=== PATIENT | male | born 1970 | race Caucasian/White ===

== ENCOUNTER 2020-06-02 20:22 | Emergency (ER) | payer OTHER, SELFPAY ==
--- NOTE | ~2020-06-02 | XR_ITS ---
EXAMINATION: XR hand LT 2V DATE: 06/02/2020 21:23 INDICATION: Left hand laceration. TECHNIQUE: 2 views of left hand were obtained. COMPARISON: None. FINDINGS: Bone alignment is normal. No fracture. There is mild osteoarthritis of second metacarpophal angeal joint and second distal interphalangeal joint. There are lacerations of the distal third and f ourth digits. IMPRESSION: 1. No fracture or radiopaque foreign body. Reviewed, dictated and finalized at location A.
[2020-06-02 20:38] VITALS: BP 138/96; PULSE 64; RESP 18; TEMP 36.7; O2SAT 99
--- NOTE | 2020-06-02 21:31 | ED.WOUNDLAC ---
HPI - Wound/Laceration General Chief Complaint: Wound/Laceration <Saud Simpson MD - Last Filed: 06/02/20 22:10> Stated Complaint: Finger Laceration <Saud Simpson MD - Last Filed: 06/02/20 22:10> Time Seen by Provider: 06/02/20 21:21 <Saud Simpson MD - Last Filed: 06/02/20 22:10> History of Present Illness HPI narrative: Patient is a 41-year-old male who presents ER with laceration to the left third digit. Patient was using a table saw when his finger got caught in it. He has numbness to the distal tip of the finger. No functional deficit. Bleeding controlled. Small lack to the left fourth digit palmar aspect that does not need repair. Unknown last tetanus. <Saud Simpson MD - Last Filed: 06/02/20 22:10> Related Data Allergies/Adverse Reactions: Allergies Allergy/AdvReac Type Severity Reaction Status Date / Time No Known Allergies Allergy Unverified 06/02/20 20:37 <Saud Simpson MD - Last Filed: 06/02/20 22:10> Review of Systems Musculoskeletal: Musculoskeletal: Denies arthralgias, Denies joint swelling and Denies muscle cramps <Saud Simpson MD - Last Filed: 06/02/20 22:10> Integumentary/Breasts: Comments: laceration left 3rd/4th <Saud Simpson MD - Last Filed: 06/02/20 22:10> Neurologic: Denies focal weakness and Reports numbness <Saud Simpson MD - Last Filed: 06/02/20 22:10> PMFSH Past Medical History Medical History: Medical History (Updated 06/02/20 @ 22:09 by Saud Simpson MD) HTN (hypertension), benign <Saud Simpson MD - Last Filed: 06/02/20 22:10> Surgical History Surgical History: Surgical History (Updated 06/02/20 @ 21:33 by Saud Simpson MD) No pertinent past surgical history <Saud Simpson MD - Last Filed: 06/02/20 22:10> Social History Social History: Social History Gender identity (if verbalized by the patient): Male <Saud Simpson MD - Last Filed: 06/02/20 22:10> Exam Narrative: Exam Narrative: GENERAL: Well-appearing, well-nourished, and in no acute distress. HEAD: Normocephalic, atraumatic. EXTREMITIES: Normal range of motion. No edema. SKIN: Warm, dry, no rash. 2 cm laceration to the palmar aspect of the third finger over the fat pad left side. No bone seen in bloodless field. NEURO: Sharp touch deficit distal tip of the left third finger. Alert and oriented x3. PSYCH: Normal mood and affect. <Saud Simpson MD - Last Filed: 06/02/20 22:10> Course Course Emergency Course: Laceration repair. By Donald WALTON Tetanus updated. Discharge home. <Saud Simpson MD - Last Filed: 06/02/20 22:10> Vital Signs Vital signs: Vital Signs Temperature 98.0 F 06/02/20 20:38 Pulse Rate 64 06/02/20 20:38 Respiratory Rate 18 06/02/20 20:38 Blood Pressure 138/96 H 06/02/20 20:38 Pulse Oximetry 99 06/02/20 20:38 Temperature 98.0 F 06/02/20 20:38 Pulse Rate 64 06/02/20 20:38 Respiratory Rate 18 06/02/20 20:38 Blood Pressure 138/96 H 06/02/20 20:38 Pulse Oximetry 99 06/02/20 20:38 <Saud Simpson MD - Last Filed: 06/02/20 22:10> Vital Signs Temperature 98.0 F 06/02/20 20:38 Pulse Rate 64 06/02/20 20:38 Respiratory Rate 18 06/02/20 20:38 Blood Pressure 138/96 H 06/02/20 20:38 Pulse Oximetry 99 06/02/20 20:38 Temperature 98.0 F 06/02/20 20:38 Pulse Rate 64 06/02/20 20:38 Respiratory Rate 18 06/02/20 20:38 Blood Pressure 138/96 H 06/02/20 20:38 Pulse Oximetry 99 06/02/20 20:38 <Hunter Bennett PA-C - Last Filed: 06/02/20 22:08> Procedures Laceration Laceration 1: Date: 06/02/20 <BASSEM Rosa Last Filed: 06/02/20 22:08> Time: 22:07 <BASSEM Rosa Last Filed: 06/02/20 22:08> Site: upper extremity <BASSEM Rosa Last Filed: 06/02/20 22:08> Side (If applicable): left <Hunter Ramirez
[2020-06-02 22:21] VITALS: BP 144/81; PULSE 81; RESP 19; TEMP 36.3; O2SAT 100
[2020-06-02] MEDS: TETANUS,DIPHTHERIA,AC PERTUSSIS ADULT (0.5 ML) BOOSTRIX IM (22:24)
== END 2020-06-02 22:24 | disposition home or self-care (01) ==
PROVIDERS: Emergency Provider Emergency Medicine; PCP Internal Medicine
DX: S61.213A Laceration without foreign body of left middle finger without damage to nail, initial encounter (principal); I10 Essential (primary) hypertension; Z23 Encounter for immunization; W31.2XXA Contact with powered woodworking and forming machines, initial encounter
CPT/HCPCS: 12001; 73120; 90471; 90715; 99283

== ENCOUNTER 2025-03-15 02:28 | Day surgery (SDC) | payer BC, SELFPAY ==
[2025-03-04 12:58] VITALS: BMI 35.0
--- OUTSIDE RECORDS SUMMARY | 2025-03-15 02:37 | XMS_ITS | Data Portability ---
Author Organization [facility], Main Office Address [address] [place] [address] Assessment Encounter Date Assessment Date Assessment LastModified by Organization Details LastModified Time 05/13/2023 05/13/2023 Continue current therapy blood work colonoscopy healthy lifestyle choices follow-up 6 months [email or web address] Not available 05/26/2023 13:13:50 Plan of Treatment Reminders Order Date Submit Date Provider Last Modified By Organization Details Last Modified Time Details Appointments None record ed. Lab None record ed. Referral None record ed. Procedures None record ed. Surgeries None record ed. Imaging None record ed. Medication Orders None record ed. Patient TargetsNo targets recorded. Patient InstructionsNo instructions recorded. Reason for Referral None Reported. Results Created Date Observation Date Name Description Value Unit Range Abnormal Flag Note LastModifiedBy Organization Detail LastModifiedTime Result Notes None recorded. Problems Name Problem SNOMED Code Status Onset Date Resolution Date Notes Provider Name and Address Organization Details Recorded Time Thumbnail injury 238025877 Completed Not Available [facility] 3 06:03:16 Pain of shoulder region 30912036 Completed Not Available [facility] 3 06:03:16 Primary erectile dysfunctio n 622736711 Active 2018 Not Available [facility] 3 06:03:16 Essential hypertensi on 32334034 Active Not Available [facility] 3 06:03:16 Osteoarthr itis 979263899 Active 2022 Alex Aguirre MD [address] [place] [address], [place], [address] , [facility] 3 13:13:41 Problem Notes None recorded. Procedures Surgical History Date Name Laterality Status Provider Name and Address Organization Details Recorded Time tonsilectomy/a denoids completed Not Available [facility] 01/16/2023 05:56:33 Knee arthroscopy/stephens rgery completed Not Available [facility] 01/16/2023 05:56:33 Carpal tunnel completed Not Available [facility] 01/16/2023 05:56:33 Elbow arthroscopy/stephens rgery completed Not Available [facility] 01/16/2023 05:56:33 Cataract Surgery completed Not Available [facility] 01/16/2023 05:56:33 Imaging Results None recorded. Procedure Notes None recorded. Medical Equipment None Reported. Allergies No known drug allergies Medications Name Sig Start Date Stop Date Status Note LastModified by Organization Details LastModified Time ofloxacin 0.3 % eye drops 11/14 completed Not Available Not Available Not Available tizanidine 4 mg tablet Take 1 tablet every day by oral route at bedtime. active Not Available Not Available No t Available hydrocodone 5 mg-acetamin ophen 325 mg tablet TAKE 1 TO 2 TABLETS BY MOUTH EVERY 4 TO 6 HOURS NEEDED FOR PAIN 12/02 completed Not Available Not Available Not Available prednisone 20 mg tablet Take 2 tablets every day by oral route as directed for 5 days. active Not Available Not Available No t Available ketorolac 0.5 % eye drops 11/14 completed Not Available Not Available Not Available prednisolon e acetate 1 % eye drops,suspe nsion 11/14 completed Not Available Not Available Not Available cephalexin 500 mg capsule TK 2 CS PO IMMEDIATE LY AND THEN TK 1 C PO Q 6 H TAT 01/04 completed Not Available Not Available Not Available lisinopril 10 mg tablet Take 1 tablet every day by oral route for 30 days. 11/28 completed Not Available Not Available Not Available diclofenac sodium 75 mg tablet,jax yed release 09/30 completed Not Available Not Available Not Available etodolac 400 mg tablet TAKE 1 TABLET BY MOUTH TWICE A DAY active Not Available Not Available No t Available loteprednol etabonate 0.5 % eye drops,suspe nsion INSTILL 1 DROP INTO RIGHT EYE THREE TIMES A DAY SHAKE WELL 11/14 completed Not Available Not Available Not Available methylpredn isolone 4 mg tablets in a dose pack Take 1 dose pk by oral route as directed. 07/22 completed Not Available Not Available Not Available naproxen 500 mg tablet Take 1 tablet twice a day by oral route. active Not Available Not Available No t Available bupropion HCl XL 150 mg 24 hr tablet, extended release TAKE ONE TABLET BY MOUTH DAILY. 03/20 completed Not Available Not Available Not Available tadalafil 20 mg tablet TAKE 1 TABLET BY MOUTH EVERY 72 HOURS DIRECTED active Not Available Not Available No t Available nebivolol 5 mg tablet TAKE 1 TABLET BY MOUTH EVERY DAY active Not Available Not Available No t Available omeprazole 20 mg tablet,jax yed release Take 1 tablet by oral route. active Not Available Not Available No t Available Zegerid OTC 2016 active Not Available Not Available Not Avai lable Vitals Date Recorded Body mass index (BMI) Body height Heart rate Body temperature Body weight Systolic blood pressure Diastolic blood pressure Provider Name and Address Organization Details Last Updated DateTime 1 34.6 kg/m2 177.8 cm 78 /min 98.3 [degF] 662012. 76 g 110 mm[Hg] 60 mm[Hg] Not Available [facility] 3 06:02:27 Date Recorded Body mass index (BMI) Body height Oxygen saturation Oxygen saturation in Arterial blood by Pulse oximetry Heart rate Respiratory rate Body temperature Body weight Systolic blood pressure Diastolic blood pressure Provider Name and Address Organization Details Last Updated DateTime 1 33.1 kg/m2 177.8 cm 98 % 98 % 76 /min 14 /min 97.6 [degF] 656307. 84 g 110 mm[Hg] 60 mm[Hg] Not Available [facility] 3 06:02:27 Date Recorded Body mass index (BMI) Body height Oxygen saturation Oxygen saturation in Arterial blood by Pulse oximetry Heart rate Body temperature Body weight Systolic blood pressure Diastolic blood pressure Provider Name and Address Organization Details Last Updated DateTime 2 37.6 kg/m2 177.8 cm 98 % 98 % 64 /min 97 [degF] 263363. 2 g 130 mm[Hg] 70 mm[Hg] Not Available [facility] 3 06:02:27 Date Recorded Body mass index (BMI) Body height Heart rate Body temperature Body weight Systolic blood pressure Diastolic blood pressure Provider Name and Address Organization Details Last Updated DateTime 2 38.3 kg/m2 177.8 cm 60 /min 97.7 [degF] 855836. 16 g 146 mm[Hg] 88 mm[Hg] Not Available [facility] 3 06:02:27 Date Recorded Body height Body mass index (BMI) Body weight Body temperature Heart rate Systolic blood pressure Diastolic blood pressure Provider Name and Address Organization Details Last Updated DateTime 3 177.8 cm 37.4 kg/m2 716098. 61 g 98 [degF] 60 /min 132 mm[Hg] 88 mm[Hg] CHRIS Mejía [facility] 11:52:32 Social History Question Answer Notes LastModified by Organization Details LastModified Time Tobacco Smoking Status Former Smoker quit age32 JOSE [employer] 05/13/2023 10:58:31 Do You Have An Advance Directive? No [id number] Information not available 01/16/2023 What Is Your Level Of Alcohol Consumption? Occasional [id number] Information not available 01/16/2023 What Is Your Level Of Caffeine Consumption? Moderate MIGRATION.[id number] [id number] Information not available 01/16/2023 How Much Tobacco Do You Chew? None MIGRATION.[id number] [id number] Information not available 01/16/2023 In The 14 Days Before Symptom Onset, Have You Had Close Contact With A Laboratory-confi rmed COVID-19 While That Case Was Ill? No [email or web address] Information not available 05/13/2023 In The 14 Days Before Symptom Onset, Have You Had Close Contact With A Person Who Is Under Investigation For COVID-19 While That Person Was Ill? No [email or web address] Information not available 05/13/2023 What Type Of Diet Are You Following? REGULAR MIGRATION.[id number] [id number] Information not available 01/16/2023 Which Illicit Or Recreational Drugs Have You Used? None [email or web address] Information not available 05/13/2023 Do You Or Have You Ever Used E-cigarettes Or Vape? Never Used Electronic Cigarettes [email or web address] Information not available 05/13/2023 What Is The Highest Grade Or Level Of School You Have Completed Or The Highest Degree You Have Received? 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 No [email or web address] Information not available 05/13/2023 What Is The Fluoride Status Of Your Home? Unknown Information not available 05/13/2023 When Did You Quit Smoking? 17+yearssincelastci manuel [email or web address] Information not available 05/13/2023 Do You Use Insect Repellent Routinely? No [email or web address] Information not available 05/13/2023 Where Do You Live? SingleLevelHouse Information not available 05/13/2023 Do You Have A Medical Power Of Director Of Hospitality? Yes [email or web address] Information not available 05/13/2023 What Was The Date Of Your Most Recent Tobacco Screening? 05/13/2023 [email or web address] Information not available 05/13/2023 Have You Ever Been Counseled For Unhealthy Alcohol Use? No [email or web address] Information not available 05/13/2023 Do You Have Any Pets? Yes [email or web address] Information not available 05/13/2023 What Is Your Relationship Status? [email or web address] [id number] Information not available 01/16/2023 Do You Use Your Seat Belt Or Car Seat Routinely? Yes [email or web address] Information not available 05/13/2023 Do You Have Smoke And Carbon Monoxide Detectors In Your Home? Yes [email or web address] Information not available 05/13/2023 Are You Passively Exposed To Smoke? No [email or web address] Information not available 05/13/2023 Do You Or Have You Ever Used Smokeless Tobacco? Never Used Smokeless Tobacco MIGRATION.[id number] [id number] Information not available 01/16/2023 Are There Any Smokers In Your House? No [email or web address] Information not available 05/13/2023 How Much Tobacco Do You Smoke? No MIGRATION.0301 [id number] Information not available 01/16/2023 What Types Of Sporting Activities Do You Participate In? None [email or web address] Information not available 05/13/2023 Do You Feel Stressed (tense, Restless, Nervous, Or Anxious, Or Unable To Sleep At Night)? [id number] [email or web address] Information not available 05/13/2023 Do You Use Any Illicit Or Recreational Drugs? No [email or web address] Information not available 05/13/2023 Do You Use Sunscreen Routinely? No [email or web address] Information not available 05/13/2023 Has Tobacco Cessation Counseling Been Provided? No [email or web address] Information not available 05/13/2023 Have You Recently Traveled Abroad? No [email or web address] Information not available 05/13/2023 Do You Have Any Dietary Restrictions? No Information not available 05/13/2023 Do You Or Have You Ever Used Any Other Forms Of Tobacco Or Nicotine? No Information not available 05/13/2023 Sex: Male Functional Status Question Answer Note LastModified by [employer] Details LastModified Time What is your exercise level? Occasional [id number] Information not available 01/16/2023 Mental Status None recorded. Family History Relationship Description Onset Age of this Age Resolved Age Notes LastModified by Organization Details LastModified Time Father Myocardial infarction 59 [id number] Not available 01/16/2023 05:56:40 Mother Hypoglycemia [email or web address] Not av ailable 05/13/2023 10:58:28 Mother Malignant tumor of thyroid gland [email or web address] Not available 04/19 10:58:28 Unspecified Relation Family history of malignant neoplasm [email or web address] Not available 04/19 10:58:28 Paternal Uncle Malignant neoplasm of lung [email or web address] Not available 04/19 10:58:28 Medical History Condition Response NERVE DISEASE N BLINDNESS N RHEUMATIC FEVER N KIDNEY STONES N BLADDER PROBLEMS N MRSA N OTHER # 1 N POLIO N LUNG DISEASE/DISORDER N COPD N RADIATION / CHEMOTHERAPY N Other # 2 N BLOOD DISEASES N EAR OR HEARING PROBLEMS N MUMPS N DEPRESSION (INCLUDING POST ) N BOWEL PROBLEMS N STROKE/TIA N ULCERS N BENIGN PROSTATIC HYPERPLASIA N MEASLES N MYOCARDIAL INFARCTION N OBESITY N GERD/NAUSEA N ANEURYSM N URINARY/BLADDER/KIDNEY PROBLEMS N CORONARY ARTERY DISEASE (CAD) N ADDICTION CONCERNS N Impotence N ENDOMETRIOSIS N USE OF BLOOD THINNERS N SKIN PROBLEMS N GASTROINTESTINAL DISORDER N PERIPHERAL VASCULAR DISEASE N MUSCLE,JOINT OR BONE PROBLEMS N GASTROINTESTINAL BLEEDING N BLOOD CLOTS N ASTHMA N CATARACTS N ERECTILE DYSFUNCTION Y VARICOSITIES N GI PROBLEMS N Low Testosterone N INFERTILITY N AIDS/HIV N CHEMOTHERAPY / RADIATION N LIVER DISEASE N MALE HYPOGONADISM N HYPERTENSION Y Deficiency N TOURETTE'S N ANXIETY DISORDER N BLOOD TRANSFUSION N ANEMIA/BLOOD DISORDER N CHRONIC EAR INFECTIONS N BRONCHITIS N TUBERCULOSIS N GLAUCOMA N FOOT PROBLEM N DIVERTICULITIS N SLEEP APNEA N CHICKENPOX N INFECTIOUS DISEASE N PROSTATE N HEART ARRHYTHMIA N INSOMNIA N HIGH CHOLESTEROL / HYPERLIPIDEMIA N EYE PROBLEMS N HYPERTHYROIDISM N EDEMA N CHRONIC PAIN SYNDROME N HYPOTHYROIDISM N CAROTID BLOCKAGE N CONSTIPATION N BACK / NECK PROBLEMS N ATHEROSCLEROSIS N BREAST PROBLEMS N DIALYSIS N ECZEMA N OSTEOPOROSIS N ARTHRITIS Y APPENDICITIS N DIABETES, TYPE N BAD TEETH N ENT N HEARTBURN / REFLUX N AUTISM SPECTRUM DISORDER (ASD) N HEPATITIS / LIVER DISEASE N GOUT N SLEEP DISORDER N ALZHEIMER'S DISEASE N Brain Problems N DEMENTIA N HERPES N SEIZURES/EPILEPSY N HEADACHES/MIGRAINES N VASCULAR DISEASE N PACEMAKER N Blood Disorder N DIZZINESS N HEART DISEASE/HEART PROBLEMS N KIDNEY DISEASE N MULTIPLE SCLEROSIS N CANCER: SPECIFY N CARDIAC ARRHYTHMIA N ATRIAL FIBRILLATION N Gall Stones N PULMONARY EMBOLISM N AUTOIMMUNE DISEASE N Immunizations Vaccine Type Date Status Note Provider Nam e and Address Organization Details Recorded Time COVID-19, mRNA, LNP-S, PF, 100 mcg/0.5mL dose or 50 mcg/0.25mL dose 11/21/2021 completed Not Available [facility] 3 06:09:30 COVID-19, mRNA, LNP-S, PF, 100 mcg/0.5mL dose or 50 mcg/0.25mL dose 10/14/2021 completed Not Available [facility] 3 06:09:30 Past Encounters Encounter ID Performer Location Encounter Start Date Encounter Closed Date Diagnosis/Indication Diagnosis SNOMED-CT Code Diagnosis ICD10 Code Diagnosis Note [id number] [facility] Internal Med Akin morales [address] [place] [address] , [facility] [place] [address] 07/27/2021 00:00:00 08/26/2021 14:46:12 [id number] [facility] [address] [facility] [address] [place] [address] 08/08/2021 00:00:00 08/08/2021 13:26:18 [id number] [facility] Internal Med [address] , [facility] [address] [place] [address] 02/02/2022 00:00:00 02/02/2022 21:56:00 [id number] [facility] Internal Med [facility] [address] [place] [address] 11/14/2022 00:00:00 11/15/2022 10:20:49 [id number] Alex Aguirre MD [facility] Internal Med [facility] [address] [place] [address] 05/13/2023 10:56:52 05/13/2023 12:28:38 Essential hypertension 21179055 I10 Osteoarthritis 683000541 M19.90 Health Concerns Section Related Observation LastModified by Organization Detai ls LastModified Time None Recorded Concern Status LastModified by Organization Details LastModified Time None Recorded Advance Directives Directive N: Payers Encounter Date Sequence Insurance Name Policy Number Policy Arriaga Covered Member ID Arriaga Member ID Guarantor Name 05/13/2023 1 [facility]: (PPO) [id number] Pipo Corona [id number] Pipo Corona Notes Date Note Type Note Provider Name and Address Organization Details Recorded Time 05/13/2023 text/html Osteoarthritis s eems to be doing fine on his anti inflammatory without side effects. Hypertension no headache no dizziness Alex Aguirre MD [address] [facility], [address], [place], [address], [facility] 05/26/2023 13:14:07
--- OUTSIDE RECORDS SUMMARY | 2025-03-15 02:37 | XMS_ITS | Continuity of Care Document ---
Author Organization [facility] Address [address] [place] [address] [address] [place] [address] Phone Care Team Providers Care Inspector Fibrous Wallboard Name Role Phone Raman HSU, OTR/L, Katrina Unavailable Unavail able Procedures Procedure Date Therapeutic Activities Neuromuscular Re-Ed Therapeutic Exercise Manual Therapy Hot or Cold Pack Progress Note Therapeutic Activities Neuromuscular Re-Ed Therapeutic Exercise Manual Therapy Hot or Cold Pack Therapeutic Activities Neuromuscular Re-Ed Therapeutic Exercise Manual Therapy Hot or Cold Pack Therapeutic Activities Neuromuscular Re-Ed Therapeutic Exercise Manual Therapy Hot or Cold Pack Therapeutic Activities Neuromuscular Re-Ed Therapeutic Exercise Manual Therapy Hot or Cold Pack Therapeutic Activities Neuromuscular Re-Ed Therapeutic Exercise Manual Therapy Hot or Cold Pack Therapeutic Activities Neuromuscular Re-Ed Therapeutic Exercise Hot or Cold Pack Manual Therapy Therapeutic Activities Neuromuscular Re-Ed Therapeutic Exercise Manual Therapy Hot or Cold Pack Therapeutic Activities Therapeutic Exercise Neuromuscular Re-Ed Manual Therapy Hot or Cold Pack Therapeutic Activities Neuromuscular Re-Ed Therapeutic Exercise Manual Therapy Hot or Cold Pack Ultrasound Progress Note Therapeutic Activities Neuromuscular Re-Ed Therapeutic Exercise Manual Therapy Hot or Cold Pack Therapeutic Activities Neuromuscular Re-Ed Hot or Cold Pack Manual Therapy Therapeutic Activities Neuromuscular Re-Ed Hot or Cold Pack Manual Therapy Therapeutic Activities Neuromuscular Re-Ed Manual Therapy Hot or Cold Pack Therapeutic Activities Hot or Cold Pack Neuromuscular Re-Ed Manual Therapy Therapeutic Activities Neuromuscular Re-Ed Manual Therapy Hot or Cold Pack Suture Removal Kit Therapeutic Activities Neuromuscular Re-Ed Manual Therapy Therapeutic Exercise Hot or Cold Pack OT Evaluation Low Complexity Therapeutic Exercise Therapeutic Activities Orthotic Mgmt and Training Long Arm Splint wrist included Therapeutic Activities Neuromuscular Re-Ed Therapeutic Exercise Manual Therapy Therapeutic Activities Neuromuscular Re-Ed Therapeutic Exercise Manual Therapy Therapeutic Activities Neuromuscular Re-Ed Therapeutic Exercise Manual Therapy Therapeutic Activities Therapeutic Exercise Neuromuscular Re-Ed Manual Therapy Therapeutic Activities Neuromuscular Re-Ed Therapeutic Exercise Manual Therapy Therapeutic Activities Neuromuscular Re-Ed Therapeutic Exercise Manual Therapy Therapeutic Activities Neuromuscular Re-Ed Therapeutic Exercise Manual Therapy Progress Note Therapeutic Activities Neuromuscular Re-Ed Therapeutic Exercise Manual Therapy Therapeutic Activities Neuromuscular Re-Ed Therapeutic Exercise Manual Therapy Therapeutic Activities Neuromuscular Re-Ed Therapeutic Exercise Manual Therapy Therapeutic Activities Neuromuscular Re-Ed Therapeutic Exercise Manual Therapy Therapeutic Activities Neuromuscular Re-Ed Therapeutic Exercise Manual Therapy Therapeutic Activities Neuromuscular Re-Ed Therapeutic Exercise Manual Therapy Hot or Cold Pack Progress Note Neuromuscular Re-Ed Therapeutic Activities Therapeutic Exercise Manual Therapy Hot or Cold Pack Therapeutic Activities Neuromuscular Re-Ed Therapeutic Exercise Manual Therapy Hot or Cold Pack Therapeutic Activities Neuromuscular Re-Ed Therapeutic Exercise Manual Therapy Hot or Cold Pack Therapeutic Activities Neuromuscular Re-Ed Therapeutic Exercise Manual Therapy Hot or Cold Pack Therapeutic Activities Neuromuscular Re-Ed Therapeutic Exercise Manual Therapy Hot or Cold Pack Therapeutic Activities Neuromuscular Re-Ed Manual Therapy Hot or Cold Pack Therapeutic Activities Progress Note Neuromuscular Re-Ed Therapeutic Exercise Hot or Cold Pack Manual Therapy Therapeutic Activities Therapeutic Exercise Neuromuscular Re-Ed Manual Therapy Hot or Cold Pack Therapeutic Activities Neuromuscular Re-Ed Manual Therapy Therapeutic Exercise Hot or Cold Pack Therapeutic Activities Therapeutic Exercise Neuromuscular Re-Ed Manual Therapy Hot or Cold Pack Therapeutic Activities Neuromuscular Re-Ed Therapeutic Exercise Manual Therapy Hot or Cold Pack Therapeutic Activities Neuromuscular Re-Ed Therapeutic Exercise Hot or Cold Pack Manual Therapy OT Evaluation Low Complexity Therapeutic Activities Neuromuscular Re-Ed Therapeutic Exercise Manual Therapy Hot or Cold Pack Orthotic Mgmt And Training Subsequent En counter Therapeutic Activities Therapeutic Exercise Long Arm Splint wrist included 19 Orthotic Mgmt and Training 3x3 or 4x4 Gauze Pad Sterile Kerlix 1 roll sterile Therapeutic Exercise Therapeutic Activities Neuromuscular Re-Ed Therapeutic Exercise Neuromuscular Re-Ed Therapeutic Activities Progress Note Therapeutic Exercise Therapeutic Activities Neuromuscular Re-Ed Therapeutic Exercise Therapeutic Activities Neuromuscular Re-Ed Therapeutic Exercise Therapeutic Activities Neuromuscular Re-Ed Therapeutic Exercise Neuromuscular Re-Ed Therapeutic Activities Therapeutic Exercise Therapeutic Activities Neuromuscular Re-Ed Therapeutic Exercise Therapeutic Activities Neuromuscular Re-Ed Therapeutic Exercise Therapeutic Activities Neuromuscular Re-Ed Progress Note Therapeutic Exercise Therapeutic Activities Neuromuscular Re-Ed Therapeutic Exercise Therapeutic Activities Neuromuscular Re-Ed Therapeutic Exercise Therapeutic Activities Neuromuscular Re-Ed Therapeutic Exercise Therapeutic Activities Neuromuscular Re-Ed Therapeutic Exercise Therapeutic Activities Neuromuscular Re-Ed Therapeutic Exercise Therapeutic Activities Neuromuscular Re-Ed Progress Note Therapeutic Exercise Therapeutic Activities Neuromuscular Re-Ed Therapeutic Exercise Therapeutic Activities Neuromuscular Re-Ed Therapeutic Exercise Neuromuscular Re-Ed Therapeutic Exercise Neuromuscular Re-Ed Therapeutic Exercise Neuromuscular Re-Ed Therapeutic Exercise Neuromuscular Re-Ed Therapeutic Exercise Neuromuscular Re-Ed OT Re-Evaluation Therapeutic Exercise Neuromuscular Re-Ed Hot or Cold Pack Therapeutic Exercise Neuromuscular Re-Ed Hot or Cold Pack OT Evaluation Moderate Complexity Therapeutic Exercise Neuromuscular Re-Ed PT RE-EVALUATION THERAPEUTIC EXERCISES NEUROMUSCULAR RE-ED MANUAL THERAPY HOT/COLD PACK ELECTRIC STIMULATION UNATT THERAPEUTIC EXERCISES MANUAL THERAPY HOT/COLD PACK ELECTRIC STIMULATION UNATT THERAPEUTIC EXERCISES NEUROMUSCULAR RE-ED MANUAL THERAPY HOT/COLD PACK ELECTRIC STIMULATION UNATT THERAPEUTIC EXERCISES NEUROMUSCULAR RE-ED MANUAL THERAPY HOT/COLD PACK ELECTRIC STIMULATION UNATT THERAPEUTIC EXERCISES NEUROMUSCULAR RE-ED MANUAL THERAPY HOT/COLD PACK ELECTRIC STIMULATION UNATT THERAPEUTIC EXERCISES NEUROMUSCULAR RE-ED MANUAL THERAPY HOT/COLD PACK ELECTRIC STIMULATION UNATT THERAPEUTIC EXERCISES NEUROMUSCULAR RE-ED MANUAL THERAPY HOT/COLD PACK ELECTRIC STIMULATION UNATT THERAPEUTIC EXERCISES NEUROMUSCULAR RE-ED MANUAL THERAPY HOT/COLD PACK ELECTRIC STIMULATION UNATT PT EVALUATION THERAPEUTIC EXERCISES MANUAL THERAPY HOT/COLD PACK ELECTRIC STIMULATION UNATT Advance Directives Directive Yes / No Effective Date File Name No Information Encounters Encounter Description Practice Location Reason(s) For Visit Diagnoses Date Provider Providers [facility], [address], [id number], tel:[phone] [place] No Information Mar-0 5- 0 Camargo Katrina. [address] [place] [address], [address], [place], [place], [facility], . tel:[phone] [facility] [address] [place] [address], [id number], tel:[phone] [place] No Information Mar-0 2- 0 Camargo Katrina. [address] [place] [address], [address], [facility], [place]. tel:[phone] Referring Provider: Mansoor Lozoya [facility] [address] 6A/6B/12A, [place], [address]. tel:[phone] [place] [address], [id number], tel:[phone] Stuart No Information Dec- 0 Camargo Katrina. [address] [place] [address], [facility] [address], [place], [facility], [place]. tel:[phone] Referring Provider: Mansoor Lozoya [facility] [address] [place] 6A/6B/12A, [place], [address]. tel:[phone] [place] [address], [id number], tel:[phone] [place] No Information 0 Camargo Katrina. [address] [place] [address], [address], [facility], [place]. tel:[phone] Referring Provider: Mansoor Lozoya [facility] [address] [place] 6A/6B/12A, [place], [address]. tel:[phone] [place] [address], [id number], tel:[phone] [place] No Information b- 0 Camargo Katrina. [address] [place] [address], [address], [facility], . tel:[phone] Referring Provider: Omid Olivera, [address] [facility] [address] [place] 6A/6B/12A, [place], [address]. tel:[phone] [place] [address], [id number], tel:[phone] [place] No Information 7-202 0 Camargo Katrina. [address] [place] [address], [address], [facility], . tel:[phone] Referring Provider: Omid Olivera, [address] [facility] [address] [place] 6A/6B/12A, [place], [address]. tel:[phone] [place] [address], [id number], tel:[phone] Stuart No Information 3-202 0 Camargo Katrina. [address] [place] [address], [address], [facility], . tel:[phone] Referring Provider: Omid Olivera, [address] [facility] [address] [place] 6A/6B/12A, [place], [address]. tel:[phone] [place] [address], [id number], tel:[phone] [place] No Information 2-202 0 Camargo Katrina. [address] [place] [address], [address], [facility], . tel:[phone] Referring Provider: Omid Olivera, [address] [facility] [address] [place] 6A/6B/12A, [place], [address]. tel:[phone] [place] [address], [id number], tel:[phone] [place] No Information b- 0-202 0 Camargo Katrina. [address] [place] [address], [facility] [address], [place], [facility], . tel:[phone] Referring Provider: Omid Olivera, [address] [facility] [address] [place] 6A/6B/12A, [place], [address]. tel:[phone] [place] [address], [address], [place], [place], [id number], [place] tel:[phone] Stuart No Information 0 Diane Cruz. . Referring Provider: Omid Olivera, [address] [facility] [address] [place] 6A/6B/12A, [place], [address]. tel:[phone] [place] [address], [address], [place], [id number], [place] tel:[phone] [place] No Information 0 Raman Herndon. [address] [place] [address], [address], [address], [place]. tel:[phone] Referring Provider: Omid Olivera, [address] [facility] [address] 6A/6B/12, [place], [address]. tel:[phone] [place] [address], [address] [facility], [place], [place], [id number], [place] tel:[phone] [facility] No Information 0 Findeiss Candido. . Referring Provider: Omid Olivera, [address] [facility] [address] [place] 6A/6B/12, [place], [address]. tel:[phone] [place] [address], [address] [facility], [place], [id number], [place] tel:[phone] [facility] No Information 0 Findeiss Candido. . Referring Provider: Omid Olivera, Dannie[address] [facility] [address] [place] 6A/6B/12A, [place], [address]. tel:[phone] [place] [address], [address], [place], [id number], [place] tel:[phone] [facility] No Information 0 Findeiss Candido. . Referring Provider: Omid Olivera, [address] [facility] [address] [place] 6A/6B/12A, [place], [address]. tel:[phone] [place] [address], [address], [place], [id number], [place] tel:[phone] Moreno Henderson No Information 0 Findeiss Candido. . Referring Provider: Omid Olivera, [address] [facility] [address] [place] 6A/6B/12A, [place], [address]. tel:[phone] [place] [address], [address], [place], [place], [id number], [place] tel:[phone] Moreno Henderson No Information 0 Findeiss Candido. . Referring Provider: Omid Olivera, [address] [facility] [address] 6A/6B/12A, [place], [address]. tel:[phone] [place] [address], [address], [place], [place], [id number], [place] tel:[phone] Moreno Henderson No Information 0 Findeiss Candido. . Referring Provider: Omid Olivera, [address] [facility] [address] 6A/6B/12, [place], [address]. tel:[phone] [place] [address], [address], [place], [place], [id number], [place] tel:[phone] Josh Henderson No Information 0 Findeiss Candido. . Referring Provider: Omid Olivera, [address] [facility] [address] [place] 6A/6B/12A, [place], [address]. tel:[phone] [place] [address], [address], [place], [place], [id number], [place] tel:[phone] Josh Henderson No Information 0 Findeiss Candido. . Referring Provider: Omid Olivera, [address] [facility] [address] [place] 6A/6B/12A, [place], [address]. tel:[phone] [place] [address], [id number], tel:[phone] Stuart No Information Dec-0 9-201 9 Hauschild Yahaira. [address] [place] [address], [address], [facility], . tel:[phone] Referring Provider: Omid Olivera, [address]annie[address] [place] 6A/6B/12A, [place], [address]. tel:[phone] [place] [address], [id number], tel:[phone] [place] No Information Dec-0 6-201 9 Hauschild Yahaira. [address] [place] [address], [address], [facility], . tel:[phone] Referring Provider: Dannie Lozoya[address] [place] 6A/6B/12A, [place], [address]. tel:[phone] [place] [address], [id number], tel:[phone] Stuart No Information Dec-0 4-201 9 Hauschild Yahaira. [address] [place] [address], [address], [facility], . tel:[phone] Referring Provider: Dannie Lozoya[address] [place] 6A/6B/12A, [place], [address]. tel:[phone] [place] [address], [id number], tel:[phone] Stuart No Information Dec-0 2-201 9 Hauschild Yahaira. [address] [place] [address], [address], [facility], . tel:[phone] Referring Provider: Omid Olivera [address] [place] 6A/6B/12A, [place], [address]. tel:[phone] [place], [place] [address]e [address] [place] [address], [id number], tel:[phone] Stuart No Information Josafat Syed. [address] [place] [address], [address] [place] [address], [facility], . tel:[phone] Referring Provider: Omid Olivera, Dannie[address] [facility] [place] 6A/6B/12A, [place], [address]. tel:[phone] [place], [place] [address]e [address] [place] [address], [id number], tel:[phone] [place] No Information Josafat Syed. [address] [place] [address], [address], [facility], . tel:[phone] Referring Provider: Dannie Lozoya[address] [facility] [address] [place] 6A/6B/12A, [place], [address]. tel:[phone] [place] [address], [id number], tel:[phone] Stuart No Information Josafat Syed. [address] [place] [address], [address], [facility], . tel:[phone] Referring Provider: Omid Olivera, [address] [place] 6A/6B/12A, [place], [address]. tel:[phone] [place] [address], [id number], tel:[phone] [place] No Information Josafat Syed. [address] [place] [address], [address], [facility], . tel:[phone] Referring Provider: Omid Olivera [address] [place] 6A/6B/12A, [place], [address]. tel:[phone] [place] [address], [id number], tel:[phone] Stuart No Information Nov2 0-201 9 Haamrita Syed. [address] [place] [address], [address], [facility], . tel:[phone] Referring Provider: Omid Olivera, [address] [place] [address] [address] 6A/6B/12, [place], [address]. tel:[phone] [place] [address], [id number], tel:[phone] [place] No Information 8-201 9 Josafat Syed. [address] [place] [address], [address], [address], . tel:[phone] Referring Provider: Omid Olivera, [address] [place] [address] [address] 6A/6B/12, [place], [address]. tel:[phone] [place] [id number], tel:[phone] [place] No Information 1 5-201 9 Josafat Syed. [address] [place] [address], [address], [place], [address], . tel:[phone] Referring Provider: Omid Olivera, [facility] [address] 6A/6B/12, [place], [address]. tel:[phone] [place] [address], [id number], tel:[phone] [place] No Information Nov-1 3-201 9 Fifi Herndon. . Referring Provider: Omid Olivera, [facility] [address] 6A/6B/12A, [place], [address]. tel:[phone] [place] [address], [place], [id number], tel:[phone] Stuart No Information Nov-0 7-201 9 Hauschitracy Syed. [address] [place] [address], [address], [facility], . tel:[phone] Referring Provider: Mansoor Lozoya [facility] [address] [place] 6A/6B/12A, [place], [address]. tel:[phone] [place] [address], [id number], tel:[phone] Stuart No Information Nov-0 5-201 9 Hauschild Yahaira. [address] [place] [address], [address], [address], [place]. tel:[phone] Referring Provider: Mansoor Lozoya [facility] [address] [place] 6A/6B/12A, [place], [address]. tel:[phone] [place] [address], [id number], tel:[phone] Stuart No Information Nov-0 4-201 9 Dalilahild Yahaira. [address] [place] [address], [address] [place] [address], [address], [place]. tel:[phone] Referring Provider: Omid Olivera, Mans[address] [facility] [place] 6A/6B/12A, [place], [address]. tel:[phone] [place] [address], [id number], tel:[phone] Stuart No Information Oct-3 1-201 9 Lowelluschild Yahaira. [address] [place] [address], [address], [place], [address], [place]. tel:[phone] Referring Provider: Mansoor Lozoya [facility] [place] 6A/6B/12A, [place], [address]. tel:[phone] [place] [address], [id number], tel:[phone] [place] No Information Oct-3 0-201 9 Hauschild Yahaira. [address] [place] [address], [address], [facility], . tel:[phone] Referring Provider: Dannie Lozoya[address] [facility] [address] [place] 6A/6B/12A, [place], [address]. tel:[phone] [place] [address], [id number], tel:[phone] [place] No Information Oct-2 9-201 9 Josafat Syed. [address] [place] [address], [facility] [address], [place], [facility], . tel:[phone] Referring Provider: Dannie Lozoya[address] [facility] [address] [place] 6A/6B/12A, [place], [address]. tel:[phone] [place] [address], [id number], tel:[phone] [facility] No Information Aug-2 5-201 9 Dahm Madalyn. [address] [place] [address], [facility] [address], [place], [facility], . tel:[phone] Referring Provider: Dannie Lozoya[address] [facility] [address] [place] 6A/6B/12A, [place], [address]. tel:[phone] [place] [address], [id number], tel:[phone] [facility] No Information Aug-2 2-201 9 Dahm Madalyn. [address] [place] [address], [address], [facility], . tel:[phone] Referring Provider: Dannie Lozoya[address] [facility] [address] [place] 6A/6B/12A, [place], [address]. tel:[phone] [place] [address], [id number], tel:[phone] [facility] No Information Aug-2 1-201 9 Dahm Madalyn. [address] [place] [address], [facility] [address], [place], [facility], . tel:[phone] Referring Provider: Omid Olivera, [address] [facility] [address] [place] 6A/6B/12A, [place], [address]. tel:[phone] [place] [address], [id number], tel:[phone] Josh Henderson No Information Oct-1 7-201 9 Dahm Madalyn. [address] [place] [address], [facility] [address], [place], [facility], . tel:[phone] Referring Provider: Omid Olivera, [address] [facility] [address] [place] 6A/6B/12A, [place], [address]. tel:[phone] [place] [address], [id number], tel:[phone] Josh Henderson No Information Oct-1 5-201 9 Dahm Madalyn. [address] [place] [address], [address], [facility], . tel:[phone] Referring Provider: Omid Olivera, [address] [facility] [address] [place] 6A/6B/12A, [place], [address]. tel:[phone] [place] [address], [id number], tel:[phone] Josh Henderson No Information Oct-1 4-201 9 Dahm Madalyn. [address] [place] [address], [facility] [address], [place], [facility], . tel:[phone] Referring Provider: Omid Olivera, [address] [facility] [address] [place] 6A/6B/12A, [place], [address]. tel:[phone] [place] [address], [id number], tel:[phone] Josh Henderson No Information Oct-1 0-201 9 Dahm Madalyn. [address] [place] [address], [address], [place], [facility], . tel:[phone] Referring Provider: Omid Olivera, [address] [facility] [address] [place] 6A/6B/12A, [place], [address]. tel:[phone] [place] [address], [id number], tel:[phone] [facility] No Information 8201 9 Daosiris Bergman. [address] [place] [address], [address], [facility], . tel:[phone] Referring Provider: Omid Olivera, [address] [facility] [address] 6A/6B/12A, [place], [address]. tel:[phone] [place] [address], [id number], tel:[phone] [facility] No Information 9 Daosiris Bergman. [address] [place] [address], [address], [facility], . tel:[phone] Referring Provider: Omid Olivera, [address] [facility] [address] [place] 6A/6B/12A, [place], [address]. tel:[phone] [place] [address], [id number], tel:[phone] [place] No Information 9 Josafat Yahaira. [address] [place] [address], [address], [place], [address], . tel:[phone] Referring Provider: Omid Olivera, [address] [facility] [address] [place] 6A/6B/12A, [place], [address]. tel:[phone] [place] [address], [id number], tel:[phone] [place] No Information 9 Rohan Espinoza. . Referring Provider: Omid Olivera, [address] [facility] [address] [place] 6A/6B/12A, [place], [address]. tel:[phone] [place] [address], [address], [place], [id number], tel:[phone] [place] No Information 9 Josafat Chongfer. [address] [place] [address], [address], [place], [facility], . tel:[phone] Referring Provider: Omid Olivera, [facility] [address] [place] 6A/6B/12A, [place], [address]. tel:[phone] [place], [place] [address], [place], [id number], [place] tel:[phone] [place] No Information 9 Rohan Espinoza. . Referring Provider: Omid Olivera, Mans[address] [facility] [address] [place] 6A/6B/12A, [place], [address]. tel:[phone] [place], [place] [address], [place], [place], [id number], tel:[phone] [place] No Information 9 Josafat Yahaira. [address] [place] [address], [address], [place], [address], [place]. tel:[phone] Referring Provider: Omid Olivera, Dannie[address] [place] [address] Pl Shmuel 6A/6B/12A, [place], [address]. tel:[phone] [place], [place] [address], [place], [place], [id number], [place] tel:[phone] Stuart No Information 9 Josafat Syed. [address] [place] [address], [address], [place], [address], [place]. tel:[phone] Referring Provider: Mansoor Lozoya [facility] [address]el 6A/6B/12A, [place], [address]. tel:[phone] [place] [address], [address] [place], [place] [address], [place], [place], [id number], [place] tel:[phone] Stuart Paresthesia of skinOther general symptoms and signsOth symptoms and signs involving the musculoskelet al systemMuscle weakness (generalized) Carpal tunnel syndrome, bilateral upper limbsLesion of ulnar nerve, bilateral upper limbs May-0 8-201 9 Hauschild Yahaira. [address] [place] [address], [address], [place], [facility], . tel:[phone] Referring Provider: Omid Olivera, Dannie[address] [facility] [address]el 6A/6B/12A, [place], [address]. tel:[phone] [place] [address] [address], [place], [place], [id number], [place] tel:[phone] Stuart Paresthesia of skinOther general symptoms and signsOth symptoms and signs involving the musculoskelet al systemMuscle weakness (generalized) Carpal tunnel syndrome, bilateral upper limbsLesion of ulnar nerve, bilateral upper limbs May-0 5 9 Hauschild Yahaira. [address] [place] [address], [address], [facility], . tel:[phone] Referring Provider: Omid Olivera, Dannie1 [facility] [address] 6A/6B/12A, [place], [address]. tel:[phone] [place] [address] [address], [place], [place], [id number], tel:[phone] Stuart Paresthesia of skinOther general symptoms and signsOth symptoms and signs involving the musculoskelet al systemMuscle weakness (generalized) Carpal tunnel syndrome, bilateral upper limbsLesion of ulnar nerve, bilateral upper limbs Apr-11 26-201 9 Hauschild Yahaira. [address] [place] [address], [address], [facility], [place]. tel:[phone] Referring Provider: Omid Olivera, Dannie1 [facility] [address] 6A/6B/12A, [place], [address]. tel:[phone] [place] [address] [address], [place], [place], [id number], [place] tel:[phone] Stuart Paresthesia of skinOther general symptoms and signsOth symptoms and signs involving the musculoskelet al systemMuscle weakness (generalized) Carpal tunnel syndrome, bilateral upper limbsLesion of ulnar nerve, bilateral upper limbs Maik-1 8-201 9 Rohan Espinoza. . Referring Provider: Dannie Lozoya1 [facility] Shmuel 6A/6B/12A, [place], [address]. tel:[phone] [place] [address], [address], [place], [place], [id number], tel:[phone] Stuart Paresthesia of skinOther general symptoms and signsOth symptoms and signs involving the musculoskelet al systemMuscle weakness (generalized) Carpal tunnel syndrome, bilateral upper limbsLesion of ulnar nerve, bilateral upper limbs Maik- 4-201 9 Josafat Syed. [address] [place] [address], [address], [facility], . tel:[phone] Referring Provider: Omid Olivera, Dannie1 [facility] Shmuel 6A/6B/12A, [place], [address]. tel:[phone] [place] [address] [address], [place], [place], [id number], tel:[phone] Stuart Paresthesia of skinOther general symptoms and signsOth symptoms and signs involving the musculoskelet al systemMuscle weakness (generalized) Carpal tunnel syndrome, bilateral upper limbsLesion of ulnar nerve, bilateral upper limbs Maik-1 2-201 9 Josafat Syed. [address] [place] [address], [address], [place], [facility], . tel:[phone] Referring Provider: Dannie Lozoya1 [facility] Shmuel 6A/6B/12A, [place], [address]. tel:[phone] [place] [address] [address], [place], [place], [id number], [place] tel:[phone] Stuart Paresthesia of skinOther general symptoms and signsOth symptoms and signs involving the musculoskelet al systemMuscle weakness (generalized) Carpal tunnel syndrome, bilateral upper limbsLesion of ulnar nerve, bilateral upper limbs Maik-1 0-201 9 Hausccandacetracy Syed. [address] [facility], [address], [place], [address], [place]. tel:[phone] Referring Provider: Omid Olivera, Dannie1 [facility] Shmuel 6A/6B/12A, [place], [address]. tel:[phone] [place] [address] [address], [place], [place], [id number], [place] tel:[phone] Stuart Paresthesia of skinOther general symptoms and signsOth symptoms and signs involving the musculoskelet al systemMuscle weakness (generalized) Carpal tunnel syndrome, bilateral upper limbsLesion of ulnar nerve, bilateral upper limbs Maik-0 7-201 9 Guimbarda Olga. . Referring Provider: Omid Olivera, Dannie1 [facility] Shmuel 6A/6B/12, [place], [address]. tel:[phone] [place] [address] [address], [place], [place], [id number], [place] tel:[phone] Stuart Paresthesia of skinOther general symptoms and signsOth symptoms and signs involving the musculoskelet al systemMuscle weakness (generalized) Carpal tunnel syndrome, bilateral upper limbsLesion of ulnar nerve, bilateral upper limbs Maik-0 5-201 9 Guimbarda Olga. . Referring Provider: Omid Olivera, [address] [facility] [address]muel 6A/6B/12, [place], [address]. tel:[phone] [facility], [place], [place], [id number], [place] tel:[phone] Stuart Paresthesia of skinOther general symptoms and signsOth symptoms and signs involving the musculoskelet al systemMuscle weakness (generalized) Carpal tunnel syndrome, bilateral upper limbsLesion of ulnar nerve, bilateral upper limbs Maik-0 3-201 9 Guimbarda Olga. . Referring Provider: Omid Olivera, [address] [facility] [address]muel 6A/6B/12A, [place], [address]. tel:[phone] [facility], [place], [place], [address], [place] tel:[phone] Stuart Paresthesia of skinOther general symptoms and signsOth symptoms and signs involving the musculoskelet al systemMuscle weakness (generalized) Carpal tunnel syndrome, bilateral upper limbsLesion of ulnar nerve, bilateral upper limbs March-3 9 Josafat Syed. [address] [facility], [address], [place], [address], [place]. tel:[phone] Referring Provider: Omid Olivera, [address] [facility] Shmuel 6A/6B/12A, [place], [address]. tel:[phone] [place] [address] [address] [facility], [place], [place], [id number], [place] tel:[phone] Stuart Paresthesia of skinOther general symptoms and signsOth symptoms and signs involving the musculoskelet al systemMuscle weakness (generalized) Carpal tunnel syndrome, bilateral upper limbsLesion of ulnar nerve, bilateral upper limbs March- 0 9 Guimbarda Olga. . Referring Provider: Omid Olivera, [address] [facility] Shmuel 6A/6B/12A, [place], [address]. tel:[phone] [facility] [facility], [place], [place], [address], [place] tel:[phone] Stuart Paresthesia of skinOther general symptoms and signsOth symptoms and signs involving the musculoskelet al systemMuscle weakness (generalized) Carpal tunnel syndrome, bilateral upper limbsLesion of ulnar nerve, bilateral upper limbs March-2 9 Guimbarda Olga. . Referring Provider: Omid Olivera, [address] [facility] [address]muel 6A/6B/12A, [place], [address]. tel:[phone] [place], [place] [address] [facility], [place], [place], [id number], [place] tel:[phone] Stuart Paresthesia of skinOther general symptoms and signsOth symptoms and signs involving the musculoskelet al systemMuscle weakness (generalized) Carpal tunnel syndrome, bilateral upper limbsLesion of ulnar nerve, bilateral upper limbs May-2 1-201 9 Joeleoarda Olga. . Referring Provider: Omid Olivera, Dannie[address] [facility] [address] 6A/6B/12A, [place], [address]. tel:[phone] [place] [address], [facility] [address], [place], [place], [address], tel:[phone] Stuart Paresthesia of skinOther general symptoms and signsOth symptoms and signs involving the musculoskelet al systemMuscle weakness (generalized) Carpal tunnel syndrome, bilateral upper limbsLesion of ulnar nerve, bilateral upper limbs May-1 5-201 9 Hauschild Yahaira. [address] [place] [address], [address], [place], [place], [facility], . tel:[phone] Referring Provider: Omid Olivera, Dannie[address] [facility] [address] 6A/6B/12A, [place], [address]. tel:[phone] [place] [address] [place], [place] [address], [place], [place], [id number], tel:[phone] Stuart Paresthesia of skinOther general symptoms and signsOth symptoms and signs involving the musculoskelet al systemMuscle weakness (generalized) Carpal tunnel syndrome, bilateral upper limbsLesion of ulnar nerve, bilateral upper limbs May-1 3-201 9 Hauschild Yahaira. [address] [place] [address], [address], [facility], . tel:[phone] Referring Provider: Omid Olivera, [address] [facility] [address]A/6B/12A, [place], [address]. tel:[phone] [place] [address] [facility] [address], [place], [place], [id number], tel:[phone] Stuart Paresthesia of skinOther general symptoms and signsOth symptoms and signs involving the musculoskelet al systemMuscle weakness (generalized) Carpal tunnel syndrome, bilateral upper limbsLesion of ulnar nerve, bilateral upper limbs May-1 0-201 9 Hauschild Yahaira. [address] [place] [address], [address], [place], [facility], . tel:[phone] Referring Provider: Omid Olivera, [address] [facility] [address]muel 6A/6B/12A, [place], [address]. tel:[phone] [place] [address], [address] [place], [place] [address], [place], [id number], [place] tel:[phone] Stuart Paresthesia of skinOther general symptoms and signsOth symptoms and signs involving the musculoskelet al systemMuscle weakness (generalized) Carpal tunnel syndrome, bilateral upper limbsLesion of ulnar nerve, bilateral upper limbs Mar-2 9 Hauschild Yahaira. [address] [place] [address], [address], [facility], . tel:[phone] Referring Provider: Omid Olivera, [facility] [address]muel 6A/6B/12A, [place], [address]. tel:[phone] [place], [place] [address], [place], [place], [id number], [place] tel:[phone] Stuart Paresthesia of skinOther general symptoms and signsOth symptoms and signs involving the musculoskelet al systemMuscle weakness (generalized) Carpal tunnel syndrome, bilateral upper limbsLesion of ulnar nerve, bilateral upper limbs Jan-2 9 Hauschild Yahaira. [address] [place] [address], [address], [facility], . tel:[phone] Referring Provider: Omid Olivera, [facility] Shmuel 6A/6B/12A, [place], [address]. tel:[phone] [place] [address], [address] [place], [place] [address], [place], [place], [id number], [place] tel:[phone] Stuart No Information 3 Navarromicah Kessleri. [address] [place] [address], [address], [place], [address], [place]. tel:[phone] Referring Provider: Dustin Fisher, [facility] [address], [place], [address]. tel:[phone] [place] [address], [address], [place], [place], [id number], tel:[phone] Stuart No Information Apr-1 7-201 3 Navarro Sola. [address] [place] [address], [address], [facility], . tel:[phone] Referring Provider: Dustin Fisher, [facility] [address], [place], [address]. tel:[phone] [place] [address] [address] [facility], [place], [place], [id number], [place] tel:[phone] Stuart No Information Apr-1 5-201 3 Navarro Sola. [address] [place] [address], [address], [place], [facility], . tel:[phone] Referring Provider: Dustin Fisher, [address] [place] [address] [address], [place], [address]. tel:[phone] [place] [address], [address] [facility], [place], [place], [id number], [place] tel:[phone] Stuart No Information Apr-1 2-201 3 Navarro Sola. [address] [place] [address], [address], [facility], . tel:[phone] Referring Provider: Dustin Fisher, [address] [place] [address] [address], [place], [address]. tel:[phone] [place] [address] [address] [facility], [place], [place], [id number], [place] tel:[phone] Stuart No Information Apr-1 0-201 3 Navarro Sola. [address] [place] [address], [address], [facility], . tel:[phone] Referring Provider: Dustin Fisher, [facility] [address], [place], [address]. tel:[phone] [place] [address], [address] [facility], [place], [id number], [place] tel:[phone] Stuart No Information Apr-0 8-201 3 Navarro Sola. [address] [place] [address], [address], [facility], . tel:[phone] Referring Provider: Dustin Fisher, [address] [place] [address], [place], [address]. tel:[phone] [place] [address], [id number], tel:[phone] Stuart No Information Apr-0 5-201 3 Navarro Sola. [address] [place] [address], [address], [facility], . tel:[phone] Referring Provider: Dustin Fisher, [address] [place] [address], [place], [address]. tel:[phone] [place] [address], [id number], tel:[phone] Stuart No Information Apr-0 3-201 3 Navarro Sola. [address] [place] [address], [address], [facility], . tel:[phone] Referring Provider: Dustin Fisher, [address] [place] [address], [place], [address]. tel:[phone] [place] [address], [id number], tel:[phone] Stuart Pain in joint involving shoulder region Apr-0 1-201 3 Navarro Sola. [address] [place] [address], [address], [facility], [place]. tel:[phone] Referring Provider: Dustin Fisher, [facility] [address], [place], [address]. tel:[phone] Family History Family Member Type Diagnosis Age At Onset No Information Payers Payer name Insurance type Covered republican ID Authoriza tion(s) [employer] EPO WC SP WC [id number] Social History Type Description Quantity Date Captured Comments Sex Male Smoking Status No Information Chief Complaint And Reason For Visit No Information Reason For Referral Reason For Referral No Information History Of Present Illness Encounter Date Complaint History Of Prese nt Illness No Information Functional Status Date Functional Assessmen t No Information Instructions Date Instruction Additional Infor munir Dietary needs education Related to Overweight Assessments Type Assessment Date No Information Patient Care Teams Name Effective Dates (start - stop) Status Members No Information
--- OUTSIDE RECORDS SUMMARY | 2025-03-15 02:37 | XMS_ITS | Data Portability ---
Author Organization [facility] Address [address] [facility] [place] [address] Care Team Providers Care Technology Coach Name Role Phone CORA ALEX Primary Care Provider Assessment Encounter Date Assessment Date Assessment LastModified by Organization Details LastModified Time 10/22/2024 10/22/2024 blood pressure is controlled continue nebivolol arthritic complaints he told the DAC sparingly obtain old records so we can see when his last colon screening was he has been recommended to stay up-to-date on immunizations he will see me back in 6 months colonoscopy ordered [email or web address] Not available 10/24/2024 16:56:53 Plan of Treatment Reminders Order Date Submit Date Provider Last Modified By Organization Details Last Modified Time Details Appointments ANY 15 2024 09:00A M Alex Aguirre MD Not available Not available Not available Lab PSA, total, serum or plasma 2023 024 [email or web address] [facility], [address], [place], [address], 10/22/2024 17:33:35 CMP, serum or plasma 2023 024 [facility], [address] [facility] [address], [place], [address], 10/22/2024 17:33:35 CBC w/ auto diff 2023 024 [id number] [facility], [address] [facility] [address], [place], [address], 10/22/2024 17:33:35 lipid panel, serum 2023 024 [id number] [facility], [address], [place], [address], 10/22/2024 17:33:35 Referral None recorded. Procedures colonosco py screening (PROC) 2023 [facility], [address], [address], [place], [address], 03/10/2025 12:48:20 Surgeries None recorded. Imaging None recorded. Medication Orders None recorded. Patient TargetsNo targets recorded. Patient InstructionsNo instructions recorded. Reason for Referral None Reported. Problems Name Problem SNOMED Code Status Onset Date Resolution Date Notes Provider Name and Address Organization Details Recorded Time Essential hypertension 03619313 Active 2023 Sarah Garcia MA [facility], [place] - [facility] 17:01:55 Osteoarthritis 106475713 Active 2023 Alex Aguirre MD Attn: Mari nava,[address] [facility], [place], [address] [place] [address] - [place] 16:57:15 Problem Notes None recorded. Procedures Surgical History Date Name Laterality Status Provider Name and Address Organization Details Recorded Time 11/18/19 22 Eye Surgery completed Alexa Napier MA [facility] 10/22/2024 16:18:07 11/18/18 90 Joint Replacement completed Alexa Napier MA [facility] 10/22/2024 16:18:17 11/18/18 75 Tonsillectomy completed Alexa Napier MA [facility] 10/22/2024 16:18:27 Imaging Results None recorded. Procedure Notes None recorded. Medical Equipment None Reported. Allergies No known drug allergies Medications Name Sig Start Date Stop Date Status Note LastModified by Organization Details LastModified Time etodolac 400 mg tablet TAKE 1 TABLET BY MOUTH TWICE A DAY 024 active Not Available Not Available Not Avai lable nebivolol 5 mg tablet TAKE 1 TABLET BY MOUTH EVERY DAY active Not Available Not Available No t Available Vitals Date Recorded Body height Body mass index (BMI) Body weight Heart rate Oxygen saturation Oxygen saturation in Arterial blood by Pulse oximetry Systolic blood pressure Diastolic blood pressure Provider Name and Address Organization Details Last Updated DateTime 180.34 cm 35.8 kg/m2 358920. 16 g 65 /min 97 % 97 % 128 mm[Hg] 70 mm[Hg] Alexa Napier MA [place] - [facility] 16:21:03 Social History Question Answer Notes LastModified by Organizat ion Details LastModified Time Tobacco Smoking Status Former Smoker Alexa Napier MA null, [place] - [facility] 10/22/2024 16:16:59 Do You Have An Advance Directive? No Information not available 10/22/2024 What Is Your Level Of Alcohol Consumption? Occasional Information not available 10/22/2024 Are You Blind Or Do You Have Difficulty Seeing? No Information not available 10/22/2024 What Is Your Level Of Caffeine Consumption? Moderate Information not available 10/22/2024 In The 14 Days Before Symptom Onset, Have You Had Close Contact With A Laboratory-confir med COVID-19 While That Case Was Ill? No Information not available 10/22/2024 In The 14 Days Before Symptom Onset, Have You Had Close Contact With A Person Who Is Under Investigation For COVID-19 While That Person Was Ill? No Information not available 10/22/2024 Have You Been To An Area Known To Be High Risk For COVID-19? No Information not available 10/22/2024 Are You Currently Employed? Yes Information not available 10/22/2024 Are You Deaf Or Do You Have Serious Difficulty Hearing? No Information not available 10/22/2024 What Type Of Diet Are You Following? REGULAR Information not available 10/22/2024 Are There Any Guns Present In Your Home? No Information not available 10/22/2024 What Was The Date Of Your Most Recent Tobacco Screening? 10/22/2024 Information not available 10/22/2024 What Is Your Current Pack Years? 10packyears Information not available 10/22/2024 What Is Your Relationship Status? Information not available 10/22/2024 Do You Use Your Seat Belt Or Car Seat Routinely? Yes Information not available 10/22/2024 Do You Have Smoke And Carbon Monoxide Detectors In Your Home? Yes Information not available 10/22/2024 How Much Tobacco Do You Smoke? No Information not available 10/22/2024 Do You Feel Stressed (tense, Restless, Nervous, Or Anxious, Or Unable To Sleep At Night)? DN4565-6 Information not available 10/22/2024 Do You Use Any Illicit Or Recreational Drugs? No Information not available 10/22/2024 Do You Use Sunscreen Routinely? Yes Information not available 10/22/2024 Has Tobacco Cessation Counseling Been Provided? No Information not available 10/22/2024 How Many Years Have You Smoked Tobacco? 25 Information not available 10/22/2024 Do You Or Have You Ever Used Any Other Forms Of Tobacco Or Nicotine? No Information not available 10/22/2024 Sex: Male Functional Status Question Answer Note LastModified by Organization D etails LastModified Time Are you able to care for yourself? Yes Information n ot available 10/22/2024 What is your exercise level? None Information not available 10/22/2024 Mental Status None recorded. Family History Relationship Description Onset Age of this Age Resolved Age Notes LastModified by Organization Details LastModified Time Mother Disorder of thyroid gland mebyma Not available 2023 16:15:53 Mother Hypertensive disorder mebyma Not available 2023 16:16:02 Father Hypertensive disorder mebyma Not available 2023 16:16:02 Medical History Condition Response Acid Reflux (GERD) Y High Blood Pressure Y Past Encounters Encounter ID Performer Location Encounter Start Date Encounter Closed Date Diagnosis/Indication Diagnosis SNOMED-CT Code Diagnosis ICD10 Code Diagnosis Note [id number] Alex Aguirre MD [facility] [address] [place] [address] 10/22/2024 15:52:02 10/22/2024 17:05:26 Essential hypertension 62582013 I10 Screening for malignant neoplasm of prostate 007181742 Z12.5 Screening for malignant neoplasm of colon 099423143 Z12.11 Osteoarthritis 758044668 M19.90 Health Concerns Section Related Observation LastModified by Organization Detai ls LastModified Time None Recorded Concern Status LastModified by Organization Details LastModified Time None Recorded Advance Directives Directive N: Payers Encounter Date Sequence Insurance Name Policy Number Policy Arriaga Covered Member ID Arriaga Member ID Guarantor Name 10/22/2024 1 [facility] [id number] Pipo Corona [id number] Pipo Corona Notes Date Note Type Note Provider Name and Address Organization Details Recorded Time 10/22/2024 text/html 54-year-old come s in history of hypertension and arthritis meds nebivolol he told the DAC sparingly allergies denied surgeries knee surgery tonsillectomy family history mother thyroid cancer dad of an [place] he is does not vape does not smoke occasionally drinks works for [employer] Alex Aguirre MD Attn: Accounting,[address] [facility], [place], [address], [facility] [place] 10/24/2024 16:57:37
--- OUTSIDE RECORDS SUMMARY | 2025-03-15 02:37 | XMS_ITS | Referral Summary ---
Author Organization [facility] Address [address] [place] [address] Care Team Providers Care Carpenter Rough Name Role Phone Alex Aguirre MD Primary Care Provider Allergies No known active allergies Medications BYSTOLIC 5 mg tabletIndication s:hypertension Take 5 mg by mouth every morning 1 9 Active omeprazole-sodiu m bicarbonate (ZEGERID) 40-1.1 mg-gram per capsuleIndicatio ns:Treatment of Non-Bleeding Gastric Disorder Take 1 capsule by mouth daily before breakfast Active magnesium gluconate (MAGONATE) 500 mg (27 mg elemental) tabletIndication s:hypomagnesemia Take 500 mg by mouth every morning Active zinc 50 mg tabletIndication s:supplement Take 50 mg by mouth every morning Active ibuprofen (ADVIL,MOTRIN) 600 mg tablet Take 1 tablet (600 mg total) by mouth every 6 (six) hours as needed for pain 30 tablet 9 Active tadalafil (CIALIS) 20 mg tablet tadalafil 20 mg tablet orally as needed Active etodolac (LODINE) 400 mg tabletIndication s:Pain Take 400 mg by mouth 2 (two) times a day as needed Active HYDROcodone-acet aminophen (NORCO) 5-325 mg per tabletIndication s:Pain TAKE 1-2 TABS EVERY 4-6 HRS PRN PAIN 25 tablet 0 Active Additional Information Patient not taking.Reported on 12/21/2019 Active Problems Problem Noted Date Diagnosed Date Cubital tunnel syndrome on left 11/16/2019 Overview (11/16/2019): Added automatically from request for surgery [id number] Primary erectile dysfunction 09/30/2019 Carpal tunnel syndrome of right wrist 07/24/2019 Overview (07/24/2019): Added automatically from request for surgery [id number] Cubital tunnel syndrome on right 07/24/2019 Overview (07/24/2019): Added automatically from request for surgery [id number] Essential hypertension 05/01/2019 Social History Tobacco Use Types Packs/Day Years Used Date Smoking Tobacco: Former Cigarettes 1 10 989 1998 Smokeless Tobacco: Never Alcohol Use Standard Drinks/Week Comments Not Currently 0 (1 standard drink = 0.6 oz pur e alcohol) less than one AUDIT-C Answer Date Recorded Frequency of Alcohol Consumption Never 11/19/2019 Average Number of Drinks Not on file 020 Frequency of Binge Drinking Not on file 12/2019 Sex and Gender Information Value Date Recorded Sex Assigned at Not on file Legal Sex Male 2:51 AM MILK DELIVERER Gender Identity Not on file Sexual Orientation Not on file Last Filed Vital Signs Vital Sign Reading Time Taken Comments Blood Pressure 131/72 11/24/2019 10:50 AM MILK DELIVERER Pulse 61 11/24/2019 10:50 AM MILK DELIVERER Temperature 36 C (96.8 F) 11/24/2019 9:24 AM MILK DELIVERER Respiratory Rate 15 11/24/2019 10:50 AM MILK DELIVERER Oxygen Saturation 90% 11/24/2019 10:50 AM MILK DELIVERER Inhaled Oxygen Concentration - - Weight 113.4 kg (250 lb) 11/19/2019 10:51 AM MILK DELIVERER Height 179.1 cm (5' 10.5 ) 11/19/2019 10:[address] Body Mass Index 35.36 11/19/2019 10:51 AM MILK DELIVERER Plan of Treatment Not on file [facility] [employer] Care Teams Carpenter Rough Relationship Specialty Start Date End Date Alex Aguirre MD PCP - General 12/10/17
--- OUTSIDE RECORDS SUMMARY | 2025-03-15 02:37 | XMS_ITS | Clinical Summary ---
Author Organization [facility] Address [address] [place] [address] Care Team Providers Care Supervisor Wound Name Role Phone Alex Aguirre MD Primary [...] (11/16/2019): Added automatically from request for surgery [id number] Primary erectile dysfunction 09/30/2019 Carpal tunnel syndrome of right wrist 07/24/2019 Overview (07/24/2019): Added automatically from request for surgery [id number] Cubital tunnel syndrome on right 07/24/2019 Overview (07/24/2019): Added automatically from request for surgery [id number] Essential hypertension 05/01/2019 Surgical History Surgery Date Site/Laterality Comments KNEE SURGERY Left over 20 years ago TONSILLECTOMY/ADENOIDECTO MY 11/18/1975 - 11/17/1976 CARPAL TUNNEL RELEASE 08/18/2019 - 09/17/2019 Right Medical History Medical History Date Comments Hypertension Gastric reflux Former smoker quit 1998 Hyperlipidemia Family History Medical History Relation Name Comments Heart attack Father Heart disease Father Hypertension Father Cancer Mother Hypertension Mother Relation Name Status Comments Father fatal [place] in his 60s Mother Social History Tobacco Use Types Packs/Day Years Used Date Smoking Tobacco: Former Cigarettes 1 10 9 1998 Smokeless Tobacco: Never Alcohol Use Standard [...] on file Legal Sex Male 2:51 AM 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 Gender Identity Not on file Sexual Orientation Not on file Obstetrics History Last Filed Vital Signs Vital Sign Reading Time Taken Comments Blood Pressure 131/72 11/24/2019 10:50 AM 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 Pulse 61 11/24/2019 10:50 AM 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 Temperature 36 C (96.8 F) 11/24/2019 9:24 AM 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 Respiratory Rate 15 11/24/2019 10:50 AM 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 Oxygen Saturation 90% 11/24/2019 10:50 AM 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 Inhaled Oxygen Concentration - - Weight 113.4 kg (250 lb) 11/19/2019 10:51 AM 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 Height 179.1 cm (5' 10.5 ) 11/19/2019 10:[address] Body Mass Index 35.36 11/19/2019 10:51 AM 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 Plan of Treatment Not on file [facility] [place] P[place] Care Teams Supervisor Wound Relationship Specialty Start Date End Date Alex Aguirre MD PCP - General 12/10/17
[2025-03-15 11:58] VITALS: BP 144/96; PULSE 77; RESP 16; TEMP 36.1; O2SAT 98; BMI 35.9
--- NOTE | 2025-03-15 12:10 | WPDANESEPPF ---
Anes - Initial Pre Proc Eval Procedure: Operation Date: 03/15/25 12:30 Proposed Procedures p Screening Colonoscopy - Rivas Rockwell MD Date/Time: 03/15/25 12:10 Surgeon: Rivas Rockwell MD Pre Op Diagnosis: screening colon Patient Data Age: 54 Gender: M Height: 1.8 m Weight: 117 kg Last Vital Signs Temp 97 F L 03/15/25 11:58 Pulse 77 03/15/25 11:58 Resp 16 03/15/25 11:58 BP 144/96 H 03/15/25 11:58 Pulse Ox 98 03/15/25 11:58 O2 Del Method Room Air 03/15/25 11:58 Allergies Allergy/AdvReac Type Severity Reaction Status Date / Time No Known Allergies Allergy Verified 03/15/25 11:57 Home Medications ?Medication ?Instructions ?Recorded ?Confirmed ?Type nebivolol 10 mg tablet (Bystolic) 5 mg PO DAILY 03/04/25 03/15/25 History omeprazole 20 mg-sodium 1 cap PO DAILY 03/04/25 03/15/25 History bicarbonate 1.1 gram capsule (Zegerid OTC) Patient hx anesthesia problems: none Family hx anesthesia problems: none Results Review: All pre-operative results and documents have been reviewed as part of the pre-operative evaluation. [facility] Past Medical History Medical History HTN (hypertension), benign Surgical History Surgical History No pertinent past surgical history Social History Social History Smoking packs per day: 1 Smoking cigarettes per day: 20.0 Years smoked: 8 Smoking pack-years: 8.00 Smoking status: Former smoker Tobacco type: cigarettes Alcohol intake: never Substance use: never Substance use type: does not use Living arrangements: with family Gender identity (if verbalized by the patient): Male Spiritual care concerns: No Anes - Eval Final PreProcedure Day of Procedure 03/15/25 12:10 Patient weight: obese Lungs: normal air movement Airway: Mallampati scale class II Neurological: alert and oriented Last oral intake: >/= 8 hours ASA classification: II Emergent: no Anesthetic plan: proceed Anesthesia type and monitoring: general GIVS and standard monitoring Results Review: All pre-operative results and documents have been reviewed as part of the pre-operative evaluation. HTN, on b nieves, mild RAVEN per pt, but never on CPAP. Informed Consent: The patient's anesthetic plan and its attendant risks and benefits were discussed with the patient/family/POA. Questions were solicited and answers provided to the satisfaction of the patient/family/POA.
[2025-03-15] MEDS: LACTATED RINGERS 1,000 ML 150 ML IV CONT (12:50)
--- NOTE | 2025-03-15 13:30 | P.HP_ITS ---
H&P: HPI History of Present Illness Date/Time: 03/15/25 13:30 Chief Complaint: Screening colonoscopy Narrative: This is the patient's first colonoscopy. There are no GI symptoms and there is no family history of colorectal cancer. Review of Systems Review of Systems: All systems reviewed & are unremarkable except as noted in HPI and below PMFSH Past Medical History Medical History HTN (hypertension), benign Surgical History Surgical History No pertinent past surgical history Social History Social History Smoking packs per day: 1 Smoking cigarettes per day: 20.0 Years smoked: 8 Smoking pack-years: 8.00 Smoking status: Former smoker Tobacco type: cigarettes Alcohol intake: never Substance use: never Substance use type: does not use Living arrangements: with family Gender identity (if verbalized by the patient): Male Spiritual care concerns: No Meds Home Medications and Allergies Home Medications ?Medication ?Instructions ?Recorded ?Confirmed ?Type nebivolol 10 mg tablet (Bystolic) 5 mg PO DAILY 03/04/25 03/15/25 History omeprazole 20 mg-sodium 1 cap PO DAILY 03/04/25 03/15/25 History bicarbonate 1.1 gram capsule (Zegerid OTC) Allergies Allergy/AdvReac Type Severity Reaction Status Date / Time No Known Allergies Allergy Verified 03/15/25 11:57 Vital Signs Vital Signs - 24 hr 03/15/25 11:58 Temperature 97 F L Pulse Rate 77 Respiratory Rate 16 Blood Pressure 144/96 H Pulse Oximetry 98 Oxygen Delivery Room Air Exam Const: General: cooperative and healthy appearing Resp: Effort & Inspection: normal respiratory effort and able to speak in complete sentences Auscultation: clear to auscultation bilaterally Cardio: Rate: regular rate Rhythm: regular rhythm GI: Inspection: normal to inspection GI Palp: No No hepatosplenomegaly pres ent Auscultation: normal bowel sounds Rectal Exam: deferred Skin: General skin exam: normal color Psych: Appearance: grossly normal Mental Status: mental status grossly normal Assessment and Plan Assessment and plan (1) Encounter for screening colonoscopy: Code(s): Z12.11 - Encounter for screening for malignant neoplasm of colon Status: Acute Assessment and Plan: The patient is deemed a good candidate for the procedure. Consent signed. Will proceed.
--- NOTE | 2025-03-15 13:55 | SUR.OPER ---
Only 2 of the 3 Transverse colon polyps retrieved, Dr. Rockwell made aware, no new orders at this time.
[2025-03-15 14:09] VITALS: BP 120/75; PULSE 61; RESP 15; O2SAT 98
[2025-03-15 14:19] VITALS: BP 124/76; PULSE 61; RESP 16; O2SAT 97
[2025-03-15 14:29] VITALS: BP 124/79; PULSE 58; RESP 13; O2SAT 97
== END 2025-03-15 14:39 | disposition home or self-care (01) ==
PROVIDERS: PCP Internal Medicine; Referring Provider Internal Medicine; Visit Provider Internal Medicine Gastroenterology
PROC: 0DJD8ZZ Inspection of Lower Intestinal Tract, Via Natural or Artificial Opening Endoscopic (ICD-10-PCS; CPT 45378; principal; 2025-03-15 12:30)
DX: Z12.11 Encounter for screening for malignant neoplasm of colon (principal); D12.3 Benign neoplasm of transverse colon; D12.5 Benign neoplasm of sigmoid colon; K64.8 Other hemorrhoids; I10 Essential (primary) hypertension; E66.9 Obesity, unspecified; Z68.36 Body mass index [BMI] 36.0-36.9, adult; Z87.891 Personal history of nicotine dependence
CPT/HCPCS: 45385; 88305; J1596; J2003; J2704; J7120